=== PATIENT | male | born 1975 | race Caucasian/White ===

== ENCOUNTER 2022-06-29 09:38 | Outpatient (CLI) | payer OTHER, SELFPAY | END 2022-06-29 09:39 | disposition home or self-care (01) | LOC: NFLDREF 12:12 | PROVIDERS: PCP Family Medicine; Referring Provider Family Medicine; Visit Provider Family Medicine | DX: Z00.00 Encounter for general adult medical examination without abnormal findings (principal); E11.9 Type 2 diabetes mellitus without complications; E66.9 Obesity, unspecified; I10 Essential (primary) hypertension; E78.5 Hyperlipidemia, unspecified | CPT/HCPCS: 80053; 80061; 82043; 82570 ==

== ENCOUNTER 2023-04-09 14:00 | Outpatient (RCR) | payer OTHER, SELFPAY | END 2023-08-07 23:59 | disposition home or self-care (01) | PROVIDERS: PCP Family Medicine; Visit Provider Physician Assistant | DX: M25.511 Pain in right shoulder (principal); S83.511A Sprain of anterior cruciate ligament of right knee, initial encounter; S46.011A Strain of muscle(s) and tendon(s) of the rotator cuff of right shoulder, initial encounter; G47.9 Sleep disorder, unspecified; R29.898 Other symptoms and signs involving the musculoskeletal system; Z73.6 Limitation of activities due to disability; Z51.89 Encounter for other specified aftercare | CPT/HCPCS: 97110; 97140; 97162 ==

== ENCOUNTER 2023-10-02 15:45 | Emergency (ER) | payer OTHER, SELFPAY ==
[2023-10-02 15:58] VITALS: BP 155/101; PULSE 120; RESP 18; TEMP 36.6; O2SAT 98; BMI 31.3
--- NOTE | 2023-10-02 16:16 | ED_ITS ---
HPI - General Adult General Chief complaint: Extremity Pain/Injury, Upper Stated complaint: shoulder pain Time Seen by Provider: 10/02/23 15:57 History of Present Illness HPI narrative: Patient is a 47-year-old male who works at [employer] and he has had a shoulder injury that is work comp related injury on the right. He has worked with a orthopedist in these schedule of surgery sometime in November, it sounds like he might have had a shoulder separation. He has had increasing pain last couple of nights, he is on light duty restriction at work. He has been trying Tylenol but that does not help him much she is allergic to ibuprofen. No new trauma or injury. No redness or swelling. Related Data Home Medications ?Medication ?Instructions ?Recorded ?Confirmed Diabetic Test Strips 12/11/21 08/08/23 lancets 12/11/21 08/08/23 Previous Rx's ?Medication ?Instructions ?Recorded lisinopril 40 mg tablet 40 mg PO DAILY #90 tabs 12/11/21 metformin 1,000 mg tablet 1,000 mg PO BIDWMEAL #180 tabs 12/11/21 simvastatin 20 mg tablet 20 mg PO .Bedtime #90 tabs 12/11/21 fluconazole 150 mg tablet 150 mg PO QWEEK #6 tabs 06/07/22 (Diflucan) ibuprofen 800 mg tablet 800 mg PO TID PRN pain #60 tabs 12/28/22 lisinopril 40 mg tablet 40 mg PO DAILY #90 tabs 07/15/23 metformin 1,000 mg tablet 1,000 mg PO BIDWMEAL #180 tabs 07/15/23 simvastatin 20 mg tablet 20 mg PO .Bedtime #90 tabs 07/15/23 cyclobenzaprine 10 mg tablet 10 mg PO .COMPLEX #5 tabs 08/08/23 tramadol 100 mg tablet 100 mg PO TID PRN pain #10 tabs 10/02/23 Allergies Allergy/AdvReac Type Severity Reaction Status Date / Time ibuprofen Allergy Verified 10/02/23 15:58 Review of Systems Status of ROS: Reports: 6 or more systems reviewed and unremarkable except as noted in History and below [facility] Medical History Shoulder injury ?S49.90XA - Unspecified injury of shoulder and upper arm, unspecified arm, initial encounter (ICD-10) Surgical History History of lumbar discectomy ?Z98.890 - Other specified postprocedural states (ICD-10) Social History Narrative: Hx Tobacco use Smoking Status: Current every day smoker Little interest or pleasure in doing things: not at all Feeling down, depressed, or hopeless: not at all Exam Narrative: Exam Narrative: Objective: Patient's vital signs show slightly elevated blood pressures pulse slightly elevated he is afebrile He is alert orient x3 his right shoulder shows limited AP duction to past 90?, he has got no warmth erythema, distal CMS right upper extremity are otherwise unremarkable, he does have a prominence at his acromioclavicular joint that he reports is chronic. It is not reddened or warm. Const: Vital Signs, click to edit/add: Vital Signs - 24 hr 10/02/23 15:58 Temperature 98 F Pulse Rate [Pulse Oximeter] 120 H Respiratory Rate 18 Blood Pressure [Ri t Upper Arm] 155/101 H Pulse Oximetry 98 Oxygen Delivery Me thod Room Air Course Vital Signs Vital signs: Initial Vital Signs Temperature 98 F 10/02/23 15:58 Temperature Source Temporal Artery Scan 10/02/23 15:58 Pulse Rate 120 H 10/02/23 15:58 Respiratory Rate 18 10/02/23 15:58 Blood Pressure 155/101 H 10/02/23 15:58 Blood Pressure Mean 119 H 10/02/23 15:58 Blood Pressure Position Sitting 10/02/23 15:58 Pulse Oximetry 98 10/02/23 15:58 Oxygen Delivery Method Room Air 10/02/23 15:58 Vital Signs Temperature 98 F 10/02/23 15:58 Pulse Rate 120 H 10/02/23 15:58 Respiratory Rate 18 10/02/23 15:58 Blood Pressure 155/101 H 10/02/23 15:58 Pulse Oximetry 98 10/02/23 15:58 Oxygen Delivery Method Room Air 10/02/23 15:58 Temperature 98 F 10/02/23 15:58 Pulse Rate 120 H 10/02/23 15:58 Respiratory Rate 18 10/02/23 15:58 Blood Pressure 155/101 H 10/02/23 15:58 Pulse Oximetry 98 10/02/23 15:58 Oxygen Delivery Method Room Air 10/02/23 15:58 Medical Decision Making MDM Narrative Medical decision making narrative: 47-year-old male with a right shoulder injury scheduled for surgery Orthopedics in November, with a mild flare in his symptoms. Recommend off work for couple days icing, will given tramadol to take as needed he can use Tylenol as well he is allergic ibuprofen. He had a no written the should be off work till the , and continue his same restrictions. Discharge Plan Discharge Clinical Impression: Acute pain of right shoulder Patient Disposition: Home w/ Parent or Adult Condition: Stable Additional Instructions: Off work until the , light duty, ice, follow up with the orthopedic surgeon as planned. Cautioned about sedation from the medication. Activity Level: Light activity Discharge Diet: Regular Prescriptions: New tramadol 100 mg tablet 100 mg PO TID PRN (Reason: pain) Qty: 10 0RF No Action (DME) Diabetic Test Strips Misc See Rx Instructions .Route Rx Instructions: As directed (DME) lancets Misc See Rx Instructions .Route Rx Instructions: As directed lisinopril 40 mg tablet 40 mg PO DAILY Qty: 90 1RF metformin 1,000 mg tablet 1,000 mg PO BIDWMEAL Qty: 180 1RF simvastatin 20 mg tablet 20 mg PO .Bedtime Qty: 90 1RF cyclobenzaprine 10 mg tablet 10 mg PO .COMPLEX Qty: 5 0RF Rx Instructions: 10 mg orally 1 po at hs; fluconazole [Diflucan] 150 mg tablet 150 mg PO QWEEK Qty: 6 0RF ibuprofen 800 mg tablet 800 mg PO TID PRN (Reason: pain) Qty: 60 2RF lisinopril 40 mg tablet 40 mg PO DAILY Qty: 90 0RF metformin 1,000 mg tablet 1,000 mg PO BIDWMEAL Qty: 180 0RF simvastatin 20 mg tablet 20 mg PO .Bedtime Qty: 90 0RF Follow Up/Referrals: Mehdi Guillory MD [Primary Care Provider] - Stand Alone Forms: [employer] Info Instructions
--- OUTSIDE RECORDS SUMMARY | 2023-10-02 16:33 | XMS_ITS | Clinical Summary ---
Author Organization [facility] Address [place], [place] [address] Care Team Providers Care Dust Puller Name Role Phone Mehdi Guillory MD Primary Care Provider [phone] Allergies Active Allergy Reactions Criticality Noted Date Comments Ibuprofen Hives 12/27/2022 Medications Medication Sig Dispensed Refills Start Date End Date Status blood-glucose meterIndications:Type II or unspecified type diabetes mellitus without mention of complication, not stated as uncontrolled As directed. Dispense glucose meter, test strips and lancets covered by the patient insurance. Test 3 times per day. 1 Device 0 02/27/2010 Active lancetsIndications:Typ e II or unspecified type diabetes mellitus without mention of complication, not stated as uncontrolled As directed. Test 3 times per day. 1 box PRN 02/27/2010 Active blood sugar diagnostic (BLOOD GLUCOSE TEST) stripIndications:Type II or unspecified type diabetes mellitus without mention of complication, not stated as uncontrolled Dispense test strips covered by the patient insurance. Test 3 times per day. 1 Bottle 12 12/08/2010 Active lisinopril (PRINIVIL; ZESTRIL) 20 mg tabletIndications:Unsp ecified essential hypertension Take 1 tablet by mouth once daily. 100 tablet 3 02/29/2012 Active Additional Information Patient taking differently: 40 mgOral DAILY, Reported on 05/23/2015 metFORMIN (GLUCOPHAGE) 1,000 mg tabletIndications:Type II or unspecified type diabetes mellitus without mention of complication, not stated as uncontrolled Take 1 tablet by mouth 2 times daily with meals. 200 tablet 3 02/29/2012 Active SIMVASTATIN ORAL Take 5 mg by mouth once daily. Active GLIPIZIDE ORAL Take 10 mg by mouth. Active diazepam (VALIUM) 2 mg tabletIndications:Lumb ar stenosis Take 1 tablet by mouth every 4 hours if needed for Muscle Spasm. 30 tablet 05/24/2015 Active sennosides-docusate, 8.6-50 mg, (SENOKOT S) 8.6-50 mg tabletIndications:Lumb ar stenosis Take 1-2 tablets by mouth 2 times daily. 40 tablet 05/24/2015 Active WalkerIndications:Lumb ar stenosis 2 Wheeled Walker for home use. 1 Device 0 05/25/2015 Active meloxicam (MOBIC) 7.5 mg tabletIndications:Righ t shoulder pain, unspecified chronicity,Adhesive capsulitis of right shoulder,Tendinitis of long head of biceps brachii of right shoulder,Arthritis of right acromioclavicular joint Take 1 Tablet (7.5 mg) by mouth once daily. 30 Tablet 06/21/2023 Active Hospital, Clinic, or Other Facility Administered Medication Ordered Dose Route Frequency Start Date End Date Status triamcinolone acetonide (KENALOG) injection 40 mgIndications:Adhesive capsulitis of right shoulder,Tendinitis of long head of biceps brachii of right shoulder 40 mg IArtic ONE TIME 09/24/2023 09/24/2023 Ended Active Problems Problem Noted Date Diagnosed Date Right shoulder pain 06/21/2023 Adhesive capsulitis of right shoulder 06/21/2023 Tendinitis of long head of biceps brachii of rig ht shoulder 06/21/2023 Arthritis of right acromioclavicular joint 06/20 Lumbar stenosis 05/23/2015 Hyperlipidemia LDL goal < 100 02/29/2012 Carbuncle and furuncle of unspecified site 11/25 Unspecified essential hypertension 08/14/2006 Type II diabetes mellitus 02/23/2002 Resolved Problems Problem Noted Date Diagnosed Date Resolved Date Other and unspecified hyperlipidemia 12/23/2006 02/29/2012 Encounters Date Type Department Care Team Description 09/24/2023 8:30 AM CDT Office Visit [facility] [address] [place] [id number] Danilo Lin MD [facility] (Follow up: right shoulder) 09/24/2023 Travel from Last 3 Months Immunizations Name Administration Dates Next Due Influenza, IIV4 05/25/2015 Tdap 12/08/2010 Family History Medical History Relation Name Comments Hypertension Father Heart Disease Maternal Grandfather Diabetes Mother Hypertension Mother Relation Name Status Comments Father Maternal Grandfather Mother Social History Tobacco Use Types Packs/Day Years Used Date Smoking Tobacco: Every Day Cigarettes Smokeless Tobacco: Never Tobacco Cessation:Counseling Given: No Comments:less than a pack per week Alcohol Use Standard Drinks/Week Comments Yes 0 (1 standard drink = 0.6 oz pur e alcohol) drinks on weekends Social Connections Answer Date Recorded Frequency of Communication with Friends and Fami ly Not on file 01/03/2023 Sex and Gender Information Value Date Recorded Sex Assigned at Not on file Gender Identity Not on file Sexual Orientation Not on file Obstetrics History Last Filed Vital Signs Vital Sign Reading Time Taken Comments Blood Pressure 204/113 12/27/2022 2:43 AM CDT Pulse 96 12/27/2022 2:18 AM CDT Temperature 37 ??C (98.6 ??F) 12/27/2022 2:18 AM CDT Respiratory Rate 17 12/27/2022 2:18 AM CDT Oxygen Saturation 96% 12/27/2022 2:18 AM CDT Inhaled Oxygen Concentration - - Weight 105 kg (231 lb 6.4 oz) 12/27/2022 2:18 AM CDT Height 170.2 cm (5' 7) 12/27/2022 2:18 AM CDT Body Mass Index 36.24 12/27/2022 2:18 AM CDT Plan of Treatment Upcoming Encounters Date Type Department Care Team (Late st Contact Info) Description 10/07/2023 8:45 AM CDT Office Visit [facility] [address] [facility] [address] [place] [address] Danilo Lin MD [address] [facility] [address] [place] [address] 12/27/2023 8:30 AM CDT Office Visit [facility] [place] [address] [facility] [address] [place] [id number] Danilo Lin MD [address] [place] [address] [address] [place] [id number] Health Maintenance Due Date Last Done Comments Pneumococcal series for age 6-64 (1 of 2 - PCV) 12/03/1979 Depression screening for age 12+ 1985 HIV for age 15-65 1988 BMI (ht and wt on same day) for age 18+ 12/03/1991 Hepatitis C screening for ag e 18-79 12/03/1991 Hepatitis B series for Diabe francisco (1 of 3 - 19+ 3-dose series) 1992 Colonoscopy through age 75 2018 Lipids for age 45-75 2018 02/29/2012, 12/08/2010, 02/22/2010, Additional history exists Tetanus booster 12/08/2020 12/08/2010, 12/08/2010 COVID-19 vaccine series ( season) 2022 05/02/2021, 07/16/2020, 06/25/2020 Influenza for age 9-49 12/01/2023 05/25/2015 Tdap Completed 12/08/2010 Medical Devices Implanted Type Area Meteorologist In Charge Device Identifier Shelf Expiration Date Model / Serial / Lot Dura 1x1in Duragen Plus Non-Jane - [id number] Implanted:Qty: 1 on 05/23/2015 by Luis Mason MD at [facility] N/A: Spine Integra [employer] Arsen [id number] / / [id number] Procedures Procedure Name Priority Date/Time Associated Diagnosis Comments LIPID PANEL W REFLEX MEASURED LDL Routine 02/29/2012 7:33 AM [facility] DIABETES HYPERLIPIDEMIA from Last 3 Months or Most Recently Relevant to Health Maintenance Results * (ABNORMAL) LIPID PANEL W REFLEX MEASURED LDL (02/29/2012 7:33 AM [facility]) CHOLESTEROL,TOTAL 201(H) 100 - 199 mg/dL 02/29/2012 8:13 AM [facility] TRIGLYCERIDES 138 <150 mg/dL 02/29/2012 8:13 AM [facility] HDL CHOLESTEROL 41 >40 mg/dL 11/30/201 2 8:13 AM [facility] NON-HDL CHOLESTEROL 160(H) <145 mg/dl 02/29/2012 8:13 AM [facility] CHOL/HDL RATIO 4.90(H) <4.50 02/29/2012 8:13 AM [facility] LDL CHOLESTEROL 132(H) <=130 mg/dL 02/29/2012 8:13 AM [facility] PATIENT STATUS FASTING 02/29/2012 8:13 AM [facility] Blood specimen (specimen) BLOOD SPECIMEN / Unknown 02/29/2012 7:33 AM [employer] 02/29/2012 7:33 AM [employer] George Azul MD CHEMISTRY [facility] [address] [place] [address] from Last 3 Months or Most Recently Relevant to Health Maintenance Advance Directives * Full Code (Latest Code Status on File) Date Activated Date Inactivated Comments 05/23/2015 7:59 PM 05/25/2015 3:47 PM * Full Code Date Activated Date Inactivated Comments 05/23/2015 12:48 PM 05/23/2015 7:59 PM Care Teams Dust Puller Relationship Specialty Start Date End Date Mehdi Guillory MD PCP - General Family Practice 05/19/15
--- OUTSIDE RECORDS SUMMARY | 2023-10-02 16:34 | XMS_ITS | Continuity of Care Document ---
Author Organization [facility] Address [address] [place] [address] Phone Care Team Providers Care Cross Cut Saw Operator Name Role Phone Odin Merritt Unavailable Unavailable Allergies, Adverse Reactions, Alerts Substance Reaction Status Criticality No Known Allergies Active No Inform ation Medications Medication Instructions Dosage Effective Dates (start - stop) Status Comments LISINOPRIL (unknown strength) Not Available - Active RIOMET (unknown strength) Not Available - Active OXYCODONE HCL (unknown strength) Not Available - Active Procedures Procedure Date Postop Followup Visit Remove Lumbar Spine Lamina, 1 Seg Remove Added Spine Lamina, 1 Seg 2015 Pa Assist Remove Lumbar Spine Lamina, 1 Seg Pa Assist Remove Added Spine Lamina, 1 S eg Office/Outpatient Visit,Est, Mod 2015 Office/Outpatient Visit,Est, Mod 2014 Office/Outpatient Visit,New, Mod 2014 Advance Directives Directive Yes / No Effective Date File Name No Information Encounters Encounter Description Practice Location Reason(s) For Visit Diagnoses Date Provider Providers Copied on Encounter [facility], [address], [place], [id number] , [place] tel: [phone] [facility] No Information 7 Angely Newby. [facility], [address], [address], [place], [id number] , [place]. tel: [phone] [facility], [address], [facility], [place], [id number] , [place] tel: [phone] [facility] [place] Encounter for other specified surgical aftercareOther watermaster (current) drug therapy 6 Angely Newby. [facility], [address], [address], [facility] [place], [id number] , [place]. tel: [phone] Referring Provider: Odin Schneider, [facility] [address], [address], [place], [address]. tel:[phone] [facility], [address], [facility] [place], [id number] , [place] tel: [phone] [facility] No Information 6 Mason Luis. [facility], [address], [address], [facility] [place], [id number] , [place]. tel: [phone] Referring Provider: Odin Schneider, [facility] [address], [address], [place], [address]. tel:[phone] Office/Outpa tient Visit,Est, Mod [facility], [address], [facility] [place], [id number] , [place] tel: [phone] [facility] OverweightEssent ial (primary) hypertensionSpin al stenosis, lumbar regionSpinal stenosis, lumbosacral regionInterverte bral disc disorders with myelopathy, lumbar region 6 Mason Luis. [facility], [address], [address], [facility] [place], [id number] , [place]. tel: [phone] Referring Provider: Odin Schneider, [facility] [address], [address], [place], [address]. tel:[phone] Office/Outpa tient Visit,Est, Mod [facility], [address], [place], [place], [id number] , [place] tel: [phone] [facility] [place] Other intervertebral disc displacement, lumbar regionSpinal stenosis, lumbar regionOther intervertebral disc degeneration, lumbar region Nov 5 Angely Newby. [facility], [address], [address], [place], [place], [id number] , . [phone] Referring Provider: Odin Schneider, [facility] [address], [address], [place], [address]. [phone] Office/Outpa tient Visit,New, Mod [facility], [address], [place], [place], [id number] , [place] tel:[phone] [facility] Lumbar DDDLumbar HNPNarrowing of the spinal canal (opening through which the spinal cord passes) in the lower back area and causing pain, cramping and/or weakness in the legs Sep Angely Newby. [facility], [address], [address], [place], [place], [id number] , [place]. tel:[phone] Referring Provider: Mehdi Bolden, [facility] [address] [place] [address], [address]. tel:[phone] Family History Family Member Type Diagnosis Age At Onset Problem (finding) Problem (finding) Payers Payer name Insurance type Covered constitution party ID Authoriza tion(s) No Information Social History Type Description Quantity Date Captured Comments Sex Male Smoking Status No Information Chief Complaint And Reason For Visit No Information Reason For Referral Reason For Referral No Information History Of Present Illness Encounter Date Complaint History Of Prese nt Illness No Information Functional Status Date Functional Assessmen t No Information Instructions Date Instruction Additional Infor mation Weight Management Education Rela robbie to Overweight Weight management: I nstructed to return to General Practitioner timeframe: 1 Month. Related to Overweight Blood Pressure Management Relate d to Unspecified Essential Hypertension Instructed to return to General Practitioner timeframe: 1 Month. Related to Unspecified Essential Hypertension Assessments Type Assessment Date No Information Patient Care Teams Name Effective Dates (start - stop) Status Members No Information
== END 2023-10-02 16:33 | disposition home or self-care (01) ==
PROVIDERS: Emergency Provider Family Medicine; PCP Family Medicine
DX: M25.511 Pain in right shoulder (principal)
CPT/HCPCS: 99283

== ENCOUNTER 2023-12-29 11:41 | Emergency (ER) | payer OTHER, SELFPAY ==
[2023-12-29 11:44] VITALS: BP 162/95; PULSE 61; RESP 18; TEMP 36.4; O2SAT 97; BMI 30.5
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
--- OUTSIDE RECORDS SUMMARY | 2023-12-29 12:24 | XMS_ITS | Continuity of Care Document ---
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 [facility], [address], [address], [place], [id number] , [place]. tel: [phone] [facility], [address], [facility] [place], [place], [id number] , [place] tel: [phone] [facility] [place] Encounter for other specified surgical aftercareOther snf (current) drug therapy 6 Angely Newby. [facility], [address], [address], [facility], [id number] , [place]. tel: [phone] Referring Provider: Odin Schneider, [facility] [address], [address], [place], [address]. tel:[phone] [facility], [address], [facility] [place], [id number] , [place] tel: [phone] [facility] No Information 6 Mason Luis. [facility], [address], [address], [facility] [place], [id number] , [place]. tel: [phone] Referring Provider: Odin Schneider, [facility] [address], [address], [place], [address]. tel:[phone] Office/Outpa tient Visit,Est, Mod [facility], [address], [facility], [id number] , [place] tel: [phone] [facility] - [facility] OverweightEssent ial (primary) hypertensionSpin al stenosis, lumbar regionSpinal stenosis, lumbosacral regionInterverte bral disc disorders with myelopathy, lumbar region 6 Mason Luis. [facility], [address], [address], [facility], [id number] , [place]. tel: [phone] Referring Provider: Odin Schneider, [facility] [address], [address], [place], [address]. tel:[phone] Office/Outpa tient Visit,Est, Mod [facility], [address], [place], [place], [id number] , [place] tel: [phone] [facility] - [place] Other intervertebral disc displacement, lumbar regionSpinal stenosis, lumbar regionOther intervertebral disc degeneration, lumbar region Nov 5 Angely Newby. [facility] [place], [address], [address], [place], [place], [id number] , . [phone] Referring Provider: Odin Schneider, [facility] [address], [address], [place], [address]. [phone] Office/Outpa tient Visit,New, Mod [facility], [address], [place], [place], [id number] , [place] tel:[phone] [facility] Lumbar DDDLumbar HNPNarrowing of the spinal canal (opening through which the spinal cord passes) in the lower back area and causing pain, cramping and/or weakness in the legs Sep Angely Newby. [facility], [address], [address], [place], [place], [id number] , [place]. tel:[phone] Referring Provider: Mehdi Bolden, [facility] [address] [place] [address], [address]. tel:[phone] Family History Family Member Type Diagnosis Age At Onset Problem (finding) Problem (finding) Payers Payer name Insurance type Covered republican ID Authoriza tion(s) No Information Social History [...]
== END 2023-12-29 12:25 | disposition home or self-care (01) ==
LOC: ED 12:22
PROVIDERS: Emergency Provider Emergency Medicine Emergency Medical Services; PCP Family Medicine
DX: S51.811A Laceration without foreign body of right forearm, initial encounter (principal); W26.0XXA Contact with knife, initial encounter
CPT/HCPCS: 12001; 99283; 99284

== ENCOUNTER 2024-01-10 08:09 | Outpatient (CLI) | payer OTHER, SELFPAY ==
--- OUTSIDE RECORDS SUMMARY | 2024-01-10 13:35 | XMS_ITS | Continuity of Care Document ---
Author Organization [facility] Address [address] [place] [address] Phone Care Team Providers Care Dyeing Machine Tender Name Role Phone Odin Merritt Unavailable Unavailable Allergies, Adverse Reactions, Alerts Substance Reaction Status Criticality No Known Allergies Active No Inform ation Medications Medication Instructions Dosage Effective Dates (start - stop) Status Comments OXYCODONE HCL (unknown strength) Not Available - Active RIOMET (unknown strength) Not Available - Active LISINOPRIL (unknown strength) Not Available - Active Procedures [...] Copied on Encounter [facility], [address], [place], [id number] , [place] tel: [phone] [facility] No Information 7 Angely Newby. [facility], [address], [address], [place], [id number] , [place]. tel: [phone] [facility], [address], [facility], [id number] , [place] tel: [phone] [facility] Encounter for other specified surgical aftercareOther fpc (current) drug therapy 6 Angely Newby. [facility], [address], [address], [facility], [place], [id number] , [place]. tel: [phone] Referring Provider: Odin Schneider, [facility] [address], [address], [place], [address]. tel:[phone] [facility], [address], [facility], [place], [id number] , [place] tel: [phone] [facility] No Information 6 Mason Luis. [facility] [place], [address], [address], [facility], [place], [id number] , [place]. tel: [phone] Referring Provider: Odin Schneider, [facility] [address], [address], [place], [address]. tel:[phone] Office/Outpa tient Visit,Est, Mod [facility], [address], [facility], [place], [id number] , [place] tel: [phone] [facility] OverweightEssent ial (primary) hypertensionSpin al stenosis, lumbar regionSpinal stenosis, lumbosacral regionInterverte bral disc disorders with myelopathy, lumbar region 6 Mason Luis. [facility], [address], [address], [facility], [place], [id number] , [place]. tel: [phone] Referring Provider: Odin Schneider, [facility] [address], [address], [place], [address]. tel:[phone] Office/Outpa tient Visit,Est, Mod [facility], [address], [place], [id number] , [place] tel: [phone] [facility] [place] Other intervertebral disc displacement, lumbar regionSpinal stenosis, lumbar regionOther intervertebral disc degeneration, lumbar region Nov 5 Angely Newby. [facility] [place], [address], [address], [place], [place], [id number] , . [phone] Referring Provider: Odin Schneider, [facility] [place] [address], [address], [place], [address]. [phone] Office/Outpa tient Visit,New, Mod [facility], [address], [place], [place], [id number] , [place] tel:[phone] [facility] Lumbar DDDLumbar HNPNarrowing of the spinal canal (opening through which the spinal cord passes) in the lower back area and causing pain, cramping and/or weakness in the legs Sep Angely Newby. [facility], [address], [address], [place], [place], [id number] , [place]. tel:[phone] Referring Provider: Mehdi Bolden, [facility] [address] [place] [address], [address]. tel:[phone] Family History Family Member Type Diagnosis Age At Onset Problem (finding) Problem (finding) Payers Payer name Insurance type Covered democrat ID Authoriza tion(s) No Information Social History [...]
== END 2024-01-10 08:10 | disposition home or self-care (01) ==
LOC: NFLDREF 13:32
PROVIDERS: PCP Family Medicine; Referring Provider Family Medicine; Visit Provider Family Medicine
DX: I10 Essential (primary) hypertension (principal); E78.5 Hyperlipidemia, unspecified; E11.65 Type 2 diabetes mellitus with hyperglycemia
CPT/HCPCS: 80053; 80061; 82043; 82570

== ENCOUNTER 2024-07-22 09:10 | Outpatient (CLI) | payer BC, SELFPAY | END 2024-07-22 09:11 | disposition home or self-care (01) | LOC: NFLDREF 09:11 | PROVIDERS: PCP Family Medicine; Visit Provider Family Medicine | DX: I10 Essential (primary) hypertension (principal) | CPT/HCPCS: 80048 ==

== ENCOUNTER 2024-12-23 10:30 | Outpatient (RCR) | payer BC, SELFPAY | END 2025-02-17 13:05 | disposition home or self-care (01) | PROVIDERS: PCP Family Medicine; Visit Provider Physician Assistant | DX: Z48.89 Encounter for other specified surgical aftercare (principal); M25.511 Pain in right shoulder; Z51.89 Encounter for other specified aftercare | CPT/HCPCS: 97110; 97140; 97161 ==